=== PATIENT | female | born 1955 | race Caucasian/White ===

== ENCOUNTER 2018-04-17 04:24 | Emergency (ER) | payer OTHER ==
[~2018-04-17] VITALS: Ht 162.6 cm; Wt 104.3 kg
[2018-04-17 04:24] VITALS: BP_SYST 110
[2018-04-17] MEDS ORDERED: NACL 0.9% 1,000 ML IV ONE (04:43)
[2018-04-17] MEDS ORDERED: IPRATROPIUM/ALBUTEROL SULFATE 3 ML AMPUL.NEB (DUONEB) INH ONE (04:45)
[2018-04-17] MEDS ORDERED: MORPHINE 4 MG/ML INJ. SYRINGE IVP ONE (04:45)
[2018-04-17 05:18] LABS: BASOPHILS % (AUTO) 1.4 % (0.0-2.0); HEMATOCRIT 39.6 % (36-48); HEMOGLOBIN 12.9 g/dL (12.0-16.0); LYMPHOCYTES % (AUTO) 29.3 % (20.5-51.5); MEAN CORPUSCULAR HEMOGLOBIN 28 pg (27-31); MEAN CORPUSCULAR HGB CONC 33 % (32-36); MEAN CORPUSCULAR VOLUME 85 fL (79.0-98.0); MONOCYTES % (AUTO) 7.3 % (1.7-9.3); PLATELET COUNT (AUTO) 347 K/uL (130-430); RED BLOOD CELL COUNT(AUTO) 4.67 MIL/uL (4.2-6.2); RED CELL DISTRIBUTION WIDTH 14.9 % (9.0-15.0); WHITE BLOOD COUNT (AUTO) 10.1 K/uL (4.8-10.8)
[2018-04-17 05:19] LABS: BASOPHILS # (AUTO) 0.1 K/uL (0.0-0.2); EOSINOPHILS # (AUTO) 0.7 K/uL (0.0-0.4); MONOCYTES # (AUTO) 0.7 K/uL (0.0-1.0); NEUTROPHILS # (AUTO) 5.6 K/uL (1.8-7.7)
[2018-04-17] MEDS ORDERED: LORazepam 2 MG/ML VIAL (FOR ER USE) IVP ONE (05:30)
[2018-04-17 05:31] LABS: ANION GAP 9 (5-15); CHLORIDE 99 mmol/L (98-107); GLUCOSE 143 mg/dL (70-99); POTASSIUM 3.7 mmol/L (3.5-5.1); SODIUM SERUM 134 mmol/L (136-145)
[2018-04-17 05:32] LABS: CALCIUM 9.3 mg/dL (8.4-11.0); CREATININE 0.91 mg/dL (0.55-1.30); GFR AFRICAN AMERICAN 80 mL/min (>90); UREA NITROGEN, BLOOD 17 mg/dL (8-21)
[2018-04-17 05:35] LABS: ASPARTATE AMINOTRANSFERASE 13 U/L (10-37); TOTAL BILIRUBIN 0.2 mg/dL (0.0-1.0)
[2018-04-17 05:36] LABS: ALANINE AMINOTRANSFERASE 31 U/L (12-78); ALBUMIN 3.4 g/dL (3.4-4.8)
[2018-04-17] MEDS ORDERED: VITD2000 PO (05:50)
[2018-04-17] MEDS ORDERED: SERT-131 PO (05:50)
[2018-04-17] MEDS ORDERED: LOSA50TA3 PO (05:50)
[2018-04-17] MEDS ORDERED: SIMV10TA2 PO (05:50)
[2018-04-17] MEDS ORDERED: FEM2.5 PO (05:50)
[2018-04-17] MEDS ORDERED: MONT10TA25 PO (05:50)
[2018-04-17 06:36] VITALS: BP_SYST 118
== END 2018-04-17 06:36 | disposition home or self-care (01) ==
LOC: SED 04:24
DX: M62.838 Other muscle spasm (principal); J45.909 Unspecified asthma, uncomplicated; E78.00 Pure hypercholesterolemia, unspecified; I10 Essential (primary) hypertension; Z85.3 Personal history of malignant neoplasm of breast; Z79.899 Other long term (current) drug therapy
CPT/HCPCS: 36415; 71045; 73030; 80053; 84484; 85025; 93005; 96374; 96375; 99284; J2060; J2270; J7030; J7620